=== PATIENT | female | born 1970 | race Caucasian/White ===

== ENCOUNTER 2017-05-09 09:47 | Inpatient (IN) | payer OTHER ==
[2017-05-09 10:00] VITALS: BMI 25.7
--- NOTE | 2017-05-09 10:13 | HP ---
CIWA Score - CIWA Score Nausea/Vomitin-Int. Nausea w/Dry Heave Muscle Tremors: 4-Moderate,w/Arms Extend Anxiety: 4-Mod. Anxious/Guarded Agitation: 1-Slight > Activity Paroxysmal Sweats: 1-Minimal Palms Moist Orientation: 0-Oriented Tacttile Disturbances: 0-None Auditory Disturbances: 1-Very Mild Visual Disturbances: 1-Very Mild Sensitivity Headache: 1-Very Mild CIWA-Ar Total Score: 17 Admission ROS S - HPI Chief Complaint: I want stop drinking and using Allergies/Adverse Reactions: Allergies Allergy/AdvReac Type Severity Reaction Status Date / Time No Known Allergies Allergy Verified 05/09/17 10:04 History of Present Illness: 47 yo woman here for detox from alcohol - poor historian - although urine tox + cocaine, opiates and bzo patient denies any use of any of these substances - [facility] checked - no Rx. Patient reports being hospitalized at [facility] a month ago for anxiety and drinking. History of drug related seizures. Patient was at [facility] ED yesterday for alcohol intoxication and she states they gave her an IV and medicine. Exam Limitations: Clinical Condition - Ebola screening Have you traveled outside of the country in the last 21 days: No Have you had contact with anyone from an Ebola affected area: No Have you been sick,other than usual withdrawal symptoms: No Do you have a fever: No - Review of Systems Constitutional: Malaise, Changes in sleep, Weakness EENT: reports: Blurred Vision Respiratory: reports: Cough Cardiac: reports: No Symptoms Reported GI: reports: Nausea, Abdominal cramping : reports: No Symptoms Reported Musculoskeletal: reports: Back Pain, Muscle Pain Integumentary: reports: No Symptoms Reported Neuro: reports: Headache Endocrine: reports: No Symptoms Reported Hematology: reports: No Symptoms Reported Psychiatric: reports: Judgement Intact, Mood/Affect Appropiate, Orientated x3, Anxious Other Systems: Reviewed and Negative Patient History - Patient Medical History Hx Anemia: No Hx Asthma: Yes (on inhaler) Hx Cancer: No Hx Cardiac Disorders: No Hx Congestive Heart Failure: No Hx Hypertension: Yes (no meds) Hx Pacemaker: No HX Cerebrovascular Accident: No Hx Seizures: Yes (? drug related) Hx Diabetes: No Hx Liver Disease: No Hx Genitourinary Disorders: No Hx Sexually Transmitted Disorders: No Hx Renal Disease (ESRD): No Hx Thyroid Disease: No Hx Human Immunodeficiency Virus (HIV): No Hx Hepatitis C: No Hx Depression: Yes (anxiety, hospitalized [facility] a mn[facility] ago) Hx Suicide Attempt: No Hx Bipolar Disorder: No Hx Schizophrenia: No - Patient Surgical History Past Surgical History: Yes Hx Appendectomy: Yes - PPD History Previous Implant?: Yes Documented Results: Negative w/o proof Implanted On Prior R Admission?: No PPD to be Administered?: Yes - Reproductive History Patient is a Female of Child Bearing Age (11 -55 yrs old): No (male) - Smoking Cessation Smoking history: Current every day smoker Have you smoked in the past 12 months: Yes Aproximately how many cigarettes per day: 2 Initiated information on smoking cessation: Yes 'Breaking Loose' booklet given: 05/09/17 (give on floor) - Substance & Tx. History Hx Alcohol Use: Yes Hx Substance Use: Yes (K-2) Substance Use Type: Alcohol Hx Substance Use Treatment: Yes (detox, rehab) - Substances Abused Alcohol Route: Oral Frequency: Daily Amount used: 2 pints rum Age of first use: 45 Date of Last Use: 05/08/17 K-2 Route: Smoking Frequency: 3-6 times per week Amount used: 1 bag Age of first use: 45 Date of Last Use: 05/07/17 Family Disease History - Family Disease History Family Disease History: Other: Father (living, no contact), Mother (no contact) , Brother (seven - no contact), Sister (two - no contact), Son (one son committed suicide), Daughter (two daughters - no contact) Admission Physical Exam S - Vital Signs Vital Signs: Vital Signs - 24 hr 05/09/17 09:57 Temperature 97.6 F Pulse Rate 91 H Respiratory 20 Rate Blood Pressure 158/100 - Physical General Appearance: Yes: Nourished, Appropriately Dressed, Moderate Distress, Anxious HEENTM: Yes: EOMI, Hearing grossly Normal, Normocephalic, Normal Voice, Pharynx Normal Respiratory: Yes: Lungs Clear, Normal Breath Sounds, No Respiratory Distress Neck: Yes: No masses,lesions,Nodules Breast: Yes: Breast Exam Deferred Cardiology: Yes: Regular Rhythm, Regular Rate Abdominal: Yes: Soft, Surgical Scar, Other (states she had internal bleeding and they did ? exploratory surgery and she's had stomach problems ever since) Genitourinary: Yes: Frequency Back: Yes: Normal Inspection Musculoskeletal: Yes: full range of Motion, Gait Steady, Muscle Pain Extremities: Yes: Normal Inspection, Normal Range of Motion, Non-Tender, Tremors Neurological: Yes: Fully Oriented, Alert, Normal Mood/Affect, Normal Response Integumentary: Yes: Normal Color, Warm Lymphatic: Yes: Within Normal Limits - Diagnostic (1) EtOH dependence Current Visit: Yes Status: Chronic Qualifiers: Substance use status: in withdrawal (2) Asthma Current Visit: Yes Status: Chronic Qualifiers: Asthma severity: moderate Asthma complication type: uncomplicated (3) HTN (hypertension) Current Visit: Yes Status: Chronic Qualifiers: Hypertension type: essential hypertension Qualified Code(s): I10 - Essential (primary) hypertension; I10 - Essential (primary) hypertension; I10 - Essential (primary) hypertension (4) PCP dependence Current Visit: Yes Status: Chronic (5) Seizure Current Visit: Yes Status: Chronic Cleared for Admission [facility] - Detox or Rehab [facility] Level of Care: Medically Managed Detox Regimen/Protocol: Librium [facility] Breath Alcohol Content Breath Alcohol Content: 0 Urine Pregancy Test - Result Urine Test Results: Negative- NO Line Present Urine Drug Screen - Results Drug Screen Negative: No Urine Drug Screen Results: HENRI-Cocaine, OPI-Opiates, BZO-Benzodiazepines
[2017-05-09] MEDS ORDERED: MAG HYDROX/AL HYDROX/SIMETH 30 ML UNIT-DOSE CUP PO PRN (10:23)
[2017-05-09] MEDS ORDERED: hydrOXYzine PAMOATE 50 MG CAPSULE (FP) PO PRN (10:23)
[2017-05-09] MEDS ORDERED: MAGNESIUM CITRATE 300 ML BOTTLE PO PRN (10:23)
[2017-05-09] MEDS ORDERED: LOPERAMIDE HCL 2 MG CAPSULE PO PRN (10:23)
[2017-05-09] MEDS ORDERED: chlordiazePOXIDE HCL 25 MG CAPSULE PO PRN (10:23)
[2017-05-09] MEDS ORDERED: ACETAMINOPHEN 325 MG TABLET (FP) PO PRN (10:23)
[2017-05-09] MEDS ORDERED: NICOTINE POLACRILEX 2 MG GUM BUC PRN (10:23)
[2017-05-09] MEDS ORDERED: MENTHOL/PHENOL 1 EACH UD MM PRN (10:23)
[2017-05-09] MEDS ORDERED: guaiFENesin/D-METHORPHAN HB 10 ML UNIT-DOSE CUPS PO PRN (10:23)
[2017-05-09] MEDS ORDERED: IBUPROFEN 400 MG TABLET (FP) PO PRN (10:23)
[2017-05-09] MEDS ORDERED: MAGNESIUM HYDROX 2400MG/30ML ORAL SUSPENSION 30 ML CUP PO PRN (10:23)
[2017-05-09] MEDS ORDERED: P-EPHED 60MG/TRIPROLIDI 2.5MG TABLET PO PRN (10:23)
[2017-05-09] MEDS ORDERED: ALBUTEROL SO4 18 GM HFA INHALER IH PRN (10:24)
[2017-05-09] MEDS ORDERED: ONDANSETRON *ODT* 4 MG TABLET SL PRN (10:24)
[2017-05-09] MEDS ORDERED: chlordiazePOXIDE HCL 25 MG CAPSULE PO ONE (12:30)
[2017-05-09] MEDS: chlordiazePOXIDE HCL 25 MG CAPSULE PO SCH ×2 (17:44→22:07)
[2017-05-09 18:13] LABS: URINE APPEARANCE TURBID; URINE BILIRUBIN NEGATIVE (NEGATIVE); URINE BLOOD NEGATIVE (NEGATIVE); URINE COLOR YELLOW; URINE GLUCOSE (UA) NEGATIVE (NEGATIVE); URINE KETONE 1+ (NEGATIVE); URINE NITRITE NEGATIVE (NEGATIVE); URINE PROTEIN NEGATIVE (NEGATIVE); URINE UROBILINOGEN NEGATIVE mg/dL (0.2-1.0)
[2017-05-09] MEDS: amLODIPine BESYLATE 10 MG TABLET (FP) PO SCH (18:52)
--- NOTE | 2017-05-09 19:41 | EKG ---
Test Reason : Blood Pressure : / mmHG Vent. Rate : 083 BPM Atrial Rate : 083 BPM P-R Int : 134 ms QRS Dur : 080 ms QT Int : 370 ms P-R-T Axes : 078 059 067 degrees QTc Int : 434 ms NORMAL SINUS RHYTHM T WAVE ABNORMALITY IN aVL NO PREVIOUS ECGS AVAILABLE CLINICAL CORRELATION IS RECOMMENDED Confirmed by TRACY HOOPER MD ([id number]) on 05/09/2017 7:40:49 PM Referred By: Confirmed By:TRACY HOOPER MD
[2017-05-09] MEDS: diphenhydrAMINE HCL 50 MG CAPSULE PO PRN (22:07)
[2017-05-09] MEDS: THIAMINE HCL 100 MG TABLET (FP) PO SCH (22:07)
[2017-05-09 22:44] LABS: URINE LEUK ESTERASE Negative (NEGATIVE)
[2017-05-10] MEDS: chlordiazePOXIDE HCL 25 MG CAPSULE PO SCH ×4 (05:29→22:20)
[2017-05-10 10:26] LABS: MCH 31.1 pg (25.7-33.7); MCHC 32.7 g/dl (32.0-36.0); MEAN CELL VOLUME 95.2 fl (80-96); MEAN PLT VOLUME 8.3 fl (7.5-11.1); PLATELET COUNT 325 K/MM3 (134-434); RDW 14.9 % (11.6-15.6); WHITE BLOOD COUNT 5.7 K/mm3 (4.0-10.0)
[2017-05-10 10:40] LABS: ALBUMIN 2.8 g/dl (3.4-5.0); ALK PHOS 91 U/L (45-117); ANION GAP 9 (8-16); BILIRUBIN,TOTAL 0.9 mg/dL (0.2-1.0); CALCIUM 9.3 mg/dL (8.5-10.1); CO2 28 mmol/L (21-32); CREATININE 0.6 mg/dL (0.55-1.02); GLUCOSE,RANDOM 87 mg/dL (74-106); SGOT/AST 75 U/L (15-37); SGPT/ALT 154 U/L (12-78); TOT PROT 6.4 g/dl (6.4-8.2)
[2017-05-10] MEDS: PRENATAL VITAMINS W/ FOLIC ACID TABLET (FP) PO SCH (10:59)
[2017-05-10] MEDS: amLODIPine BESYLATE 10 MG TABLET (FP) PO SCH (10:59)
--- NOTE | 2017-05-10 12:14 | PN ---
S CIWA - CIWA Score Nausea/Vomitin Muscle Tremors: 3 Anxiety: 3 Agitation: 3 Paroxysmal Sweats: 1-Minimal Palms Moist Orientation: 0-Oriented Tacttile Disturbances: 1-Very Mild Itch/Numbness Auditory Disturbances: 1-Very Mild Visual Disturbances: 0-None Headache: 2-Mild CIWA-Ar Total Score: 17 BHS Progress Note (SOAP) Subjective: ALERT,IRRITABLE,ANXIOUS,INTERRUPTED SLEEP,TREMOR Objective: 05/10/17 12:11 Vital Signs Temperature 97.2 F L 05/10/17 09:55 Pulse Rate 102 H 05/10/17 09:55 Respiratory Rate 18 05/10/17 09:55 Blood Pressure 134/84 05/10/17 09:55 O2 Sat by Pulse Oximetry (%) EKG NSR,NORMAL ECG Laboratory Last Values WBC 5.7 K/mm3 (4.0-10.0) 05/10/17 07:40 RBC 4.01 M/mm3 (3.60-5.2) 05/10/17 07:40 Hgb 12.5 GM/dL (10.7-15.3) 05/10/17 07:40 Hct 38.2 % (32.4-45.2) 05/10/17 07:40 MCV 95.2 fl (80-96) 05/10/17 07:40 MCH 31.1 pg (25.7-33.7) 05/10/17 07:40 MCHC 32.7 g/dl (32.0-36.0) 05/10/17 07:40 RDW 14.9 % (11.6-15.6) 05/10/17 07:40 Plt Count 325 K/MM3 (134-434) 05/10/17 07:40 MPV 8.3 fl (7.5-11.1) 05/10/17 07:40 Sodium 140 mmol/L (136-145) 05/10/17 07:40 Potassium 3.9 mmol/L (3.5-5.1) 05/10/17 07:40 Chloride 103 mmol/L (98-107) 05/10/17 07:40 Carbon Dioxide 28 mmol/L (21-32) 05/10/17 07:40 Anion Gap 9 (8-16) 05/10/17 07:40 BUN 6 mg/dL (7-18) L 05/10/17 07:40 Creatinine 0.6 mg/dL (0.55-1.02) 05/10/17 07:40 Creat Clearance w eGFR > 60 (>60) 05/10/17 07:40 Random Glucose 87 mg/dL (74-106) 05/10/17 07:40 Calcium 9.3 mg/dL (8.5-10.1) 05/10/17 07:40 Total Bilirubin 0.9 mg/dL (0.2-1.0) 05/10/17 07:40 AST 75 U/L (15-37) H 05/10/17 07:40 ALT 154 U/L (12-78) H 05/10/17 07:40 Alkaline Phosphatase 91 U/L (45-117) 05/10/17 07:40 Total Protein 6.4 g/dl (6.4-8.2) 05/10/17 07:40 Albumin 2.8 g/dl (3.4-5.0) L 05/10/17 07:40 Urine Color Yellow 05/09/17 14:40 Urine Appearance Turbid 05/09/17 14:40 Urine pH 5.0 (5.0-8.0) 05/09/17 14:40 Ur Specific [place] 1.025 (1.005-1.025) 05/09/17 14:40 Urine Protein Negative (NEGATIVE) 05/09/17 14:40 Urine Glucose (UA) Negative (NEGATIVE) 05/09/17 14:40 Urine Ketones 1+ (NEGATIVE) H 05/09/17 14:40 Urine Blood Negative (NEGATIVE) 05/09/17 14:40 Urine Nitrite Negative (NEGATIVE) 05/09/17 14:40 Urine Bilirubin Negative (NEGATIVE) 05/09/17 14:40 Urine Urobilinogen Negative mg/dL (0.2-1.0) 05/09/17 14:40 Ur Leukocyte Esterase Negative (NEGATIVE) 05/09/17 14:40 RPR Titer Nonreactive (NONREACTIVE) 05/10/17 07:40 05/10/17 12:13 LABS PENDING Assessment: 05/10/17 12:13 WITHDRAWAL SYMPTOM Plan: CONTINUE DETOX,D/C TYLENOL FOR ELEVATION OF ALT,AST
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
[2017-05-10] MEDS ORDERED: ALBUTEROL SO4 2.5/IPRATROPIUM 0.5 INH SOL 3 ML VIAL.NEB. NEB PRN (17:56)
[2017-05-10] MEDS: ALBUTEROL SO4 2.5/IPRATROPIUM 0.5 INH SOL 3 ML VIAL.NEB. NEB SCH ×2 (18:15→23:08)
[2017-05-10] MEDS: THIAMINE HCL 100 MG TABLET (FP) PO SCH (22:20)
[2017-05-10] MEDS: diphenhydrAMINE HCL 50 MG CAPSULE PO PRN (22:21)
[2017-05-11] MEDS: chlordiazePOXIDE HCL 25 MG CAPSULE PO SCH ×2 (05:42→10:21)
[2017-05-11] MEDS: amLODIPine BESYLATE 10 MG TABLET (FP) PO SCH (10:21)
[2017-05-11] MEDS: PRENATAL VITAMINS W/ FOLIC ACID TABLET (FP) PO SCH (10:21)
--- NOTE | 2017-05-11 11:21 | PN ---
S CIWA - CIWA Score Nausea/Vomitin Muscle Tremors: 3 Anxiety: 3 Agitation: 3 Paroxysmal Sweats: 1-Minimal Palms Moist Orientation: 0-Oriented Tacttile Disturbances: 1-Very Mild Itch/Numbness Auditory Disturbances: 1-Very Mild Visual Disturbances: 0-None Headache: 2-Mild CIWA-Ar Total Score: 17 BHS Progress Note (SOAP) Subjective: ALERT,IRRITABLE,ANXIOUS,INTERRUPTED SLEEP,TREMOR Objective: 05/11/17 11:19 Vital Signs Temperature 96.2 F L 05/11/17 09:44 Pulse Rate 96 H 05/11/17 09:44 Respiratory Rate 18 05/11/17 09:44 Blood Pressure 155/93 05/11/17 09:44 O2 Sat by Pulse Oximetry (%) 05/11/17 11:22 Assessment: 05/11/17 11:22 WITHDRAWAL SYMPTOM Plan: CONTINUE DETOX
[2017-05-11] MEDS: chlordiazePOXIDE 5 MG CAPSULE PO SCH ×2 (17:23→22:28)
[2017-05-11] MEDS: ALBUTEROL SO4 2.5/IPRATROPIUM 0.5 INH SOL 3 ML VIAL.NEB. NEB SCH (17:24)
[2017-05-11] MEDS: diphenhydrAMINE HCL 50 MG CAPSULE PO PRN (22:29)
[2017-05-11] MEDS: THIAMINE HCL 100 MG TABLET (FP) PO SCH (22:29)
[2017-05-12] MEDS: ALBUTEROL SO4 2.5/IPRATROPIUM 0.5 INH SOL 3 ML VIAL.NEB. NEB SCH ×4 (00:30→13:00)
[2017-05-12] MEDS: chlordiazePOXIDE 5 MG CAPSULE PO SCH ×2 (05:45→10:21)
[2017-05-12] MEDS: PRENATAL VITAMINS W/ FOLIC ACID TABLET (FP) PO SCH (10:21)
[2017-05-12] MEDS: amLODIPine BESYLATE 10 MG TABLET (FP) PO SCH (10:21)
--- NOTE | 2017-05-12 10:33 | PN ---
S Progress Note (SOAP) Subjective: ALERT,IRRITABLE,INTERRUPTED SLEEP Objective: 05/12/17 10:30 Vital Signs Temperature 96.8 F L 05/12/17 10:10 Pulse Rate 107 H 05/12/17 10:10 Respiratory Rate 18 05/12/17 10:10 Blood Pressure 112/67 05/12/17 10:10 O2 Sat by Pulse Oximetry (%) Laboratory Last Values WBC 5.7 K/mm3 (4.0-10.0) 05/10/17 07:40 RBC 4.01 M/mm3 (3.60-5.2) 05/10/17 07:40 Hgb 12.5 GM/dL (10.7-15.3) 05/10/17 07:40 Hct 38.2 % (32.4-45.2) 05/10/17 07:40 MCV 95.2 fl (80-96) 05/10/17 07:40 MCH 31.1 pg (25.7-33.7) 05/10/17 07:40 MCHC 32.7 g/dl (32.0-36.0) 05/10/17 07:40 RDW 14.9 % (11.6-15.6) 05/10/17 07:40 Plt Count 325 K/MM3 (134-434) 05/10/17 07:40 MPV 8.3 fl (7.5-11.1) 05/10/17 07:40 Sodium 140 mmol/L (136-145) 05/10/17 07:40 Potassium 3.9 mmol/L (3.5-5.1) 05/10/17 07:40 Chloride 103 mmol/L (98-107) 05/10/17 07:40 Carbon Dioxide 28 mmol/L (21-32) 05/10/17 07:40 Anion Gap 9 (8-16) 05/10/17 07:40 BUN 6 mg/dL (7-18) L 05/10/17 07:40 Creatinine 0.6 mg/dL (0.55-1.02) 05/10/17 07:40 Creat Clearance w eGFR > 60 (>60) 05/10/17 07:40 Random Glucose 87 mg/dL (74-106) 05/10/17 07:40 Calcium 9.3 mg/dL (8.5-10.1) 05/10/17 07:40 Total Bilirubin 0.9 mg/dL (0.2-1.0) 05/10/17 07:40 AST 75 U/L (15-37) H 05/10/17 07:40 ALT 154 U/L (12-78) H 05/10/17 07:40 Alkaline Phosphatase 91 U/L (45-117) 05/10/17 07:40 Total Protein 6.4 g/dl (6.4-8.2) 05/10/17 07:40 Albumin 2.8 g/dl (3.4-5.0) L 05/10/17 07:40 Urine Color Yellow 05/09/17 14:40 Urine Appearance Turbid 05/09/17 14:40 Urine pH 5.0 (5.0-8.0) 05/09/17 14:40 Ur Specific [place] 1.025 (1.005-1.025) 05/09/17 14:40 Urine Protein Negative (NEGATIVE) 05/09/17 14:40 Urine Glucose (UA) Negative (NEGATIVE) 05/09/17 14:40 Urine Ketones 1+ (NEGATIVE) H 05/09/17 14:40 Urine Blood Negative (NEGATIVE) 05/09/17 14:40 Urine Nitrite Negative (NEGATIVE) 05/09/17 14:40 Urine Bilirubin Negative (NEGATIVE) 05/09/17 14:40 Urine Urobilinogen Negative mg/dL (0.2-1.0) 05/09/17 14:40 Ur Leukocyte Esterase Negative (NEGATIVE) 05/09/17 14:40 RPR Titer Nonreactive (NONREACTIVE) 05/10/17 07:40 Hepatitis C Antibody >11.0 s/co ratio (0.0-0.9) H 05/10/17 07:40 Assessment: 05/12/17 10:30 WITHDRAWAL SYMPTOM Plan: CONTINUE DETOX,EXPLAINED TO PATIENT THAT THE HEPATITIS C IS POSITIVE,SHE WILL SEE HER PMD DR KENDY GALLAGHER AT [address] [place] [address] FOR FOLLOW UP UPON DISCHARGE
[2017-05-12] MEDS: chlordiazePOXIDE HCL 10 MG CAPSULE PO SCH ×2 (17:49→22:33)
[2017-05-12] MEDS: diphenhydrAMINE HCL 50 MG CAPSULE PO PRN (22:34)
[2017-05-12] MEDS: THIAMINE HCL 100 MG TABLET (FP) PO SCH (22:34)
[2017-05-13] MEDS: ALBUTEROL SO4 2.5/IPRATROPIUM 0.5 INH SOL 3 ML VIAL.NEB. NEB SCH ×2 (00:30→06:05)
[2017-05-13] MEDS: chlordiazePOXIDE HCL 10 MG CAPSULE PO SCH (06:05)
--- NOTE | 2017-05-13 09:03 | DS ---
[facility] Detox Discharge Summary Admission Date: 05/09/17 Discharge Date: 05/13/17 - History Present History: Sedative Dependence, Pcp Dependence Additional Comments: follow up with after care program as arrangement Pertinent Past History: asthma hypertension seizure nicotine dependence dependence - Physical Exam Results Vital Signs: Vital Signs Temperature 97.1 F L 05/13/17 06:20 Pulse Rate 81 05/13/17 06:20 Respiratory Rate 18 05/13/17 06:20 Blood Pressure 132/72 05/13/17 06:20 O2 Sat by Pulse Oximetry (%) Pertinent Admission Physical Exam Findings: withdrawal symptom - Treatment Hospital Course: Detox Protocol Followed, Detoxed Safely, Responded well, Discharged Condition Good Patient has Accepted a Rehab Referral to: declined - Medication Discharge Medications: Ambulatory Orders Albuterol Sulfate Inhaler - [Ventolin Hfa Inhaler -] 2 inh PO Q4H PRN 05/09/17 - Diagnosis (1) Alcohol dependence with uncomplicated withdrawal Current Visit: Yes Status: Acute (2) Nicotine dependence Current Visit: Yes Status: Acute (3) Asthma Current Visit: Yes Status: Chronic Qualifiers: Asthma severity: moderate Asthma complication type: uncomplicated (4) HTN (hypertension) Current Visit: Yes Status: Chronic Qualifiers: Hypertension type: essential hypertension Qualified Code(s): I10 - Essential (primary) hypertension; I10 - Essential (primary) hypertension; I10 - Essential (primary) hypertension (5) PCP dependence Current Visit: Yes Status: Chronic (6) Seizure Current Visit: Yes Status: Chronic (7) Hepatitis C Current Visit: Yes Status: Acute (8) Schizophrenia Current Visit: Yes Status: Ruled-out - AMA Did Patient Leave Against Medical Advice: No
[2017-05-13 10:51] VITALS: BP 130/80; PULSE 70; TEMP 98.2
[2017-05-14 08:11] LABS: HCV LOG 10 5.138 (.)
== END 2017-05-13 09:38 | disposition home or self-care (01) | DRG 775 ==
LOC: YASAS 09:47 → Y6N 12:12
PROVIDERS: ADMIT Internal Medicine; ATTEND Internal Medicine
PROC: HZ2ZZZZ Detoxification Services for Substance Abuse Treatment (ICD-10-PCS; principal; 2017-05-09)
DX: F10.230 Alcohol dependence with withdrawal, uncomplicated (principal); F16.20 Hallucinogen dependence, uncomplicated; F17.210 Nicotine dependence, cigarettes, uncomplicated; F20.9 Schizophrenia, unspecified; F99 Mental disorder, not otherwise specified; J45.40 Moderate persistent asthma, uncomplicated; I10 Essential (primary) hypertension; B18.2 Chronic viral hepatitis C; Z86.69 Personal history of other diseases of the nervous system and sense organs
CPT/HCPCS: 36415; 80053; 81003; 85027; 86593; 86803; 87522; 93005; 93010; 94640

== ENCOUNTER 2023-02-02 08:58 | Inpatient (IN) | payer OTHER ==
[2023-02-02 09:37] VITALS: BMI 28.8
[2023-02-02] MEDS ORDERED: IBUPROFEN 400 MG TABLET (FP) PO PRN (11:07)
[2023-02-02] MEDS ORDERED: BISMUTH SUBSALICYLATE 524 MG/30 ML PO PRN (11:07)
[2023-02-02] MEDS ORDERED: IBUPROFEN 600 MG TABLET (FP) PO PRN (11:07)
[2023-02-02] MEDS ORDERED: BENZOCAINE/MENTHOL (CHLORASEPTIC ) LOZENGE MM PRN (11:07)
[2023-02-02] MEDS ORDERED: ONDANSETRON *ODT* 4 MG TABLET SL PRN (11:07)
[2023-02-02] MEDS ORDERED: MAGNESIUM HYDROX 2400MG/30ML ORAL SUSPENSION 30 ML CUP PO PRN (11:07)
[2023-02-02] MEDS ORDERED: ACETAMINOPHEN 325 MG TABLET (FP) PO PRN (11:07)
[2023-02-02] MEDS ORDERED: NALOXONE HCL (KLOXXADO) 8 MG SPRAY NS PRN (11:07)
[2023-02-02] MEDS ORDERED: BENZONATATE 200 MG CAPSULE PO PRN (11:07)
[2023-02-02] MEDS ORDERED: MAG HYDROX/AL HYDROX/SIMETH 30 ML UNIT-DOSE CUP PO PRN (11:07)
[2023-02-02] MEDS ORDERED: POLYETHYLENE GLYCOL (HEALTHYLAX) 3350 17 GM PACKET PO PRN (11:07)
[2023-02-02] MEDS ORDERED: LOPERAMIDE HCL 2 MG CAPSULE PO PRN (11:07)
[2023-02-02] MEDS ORDERED: NALOXONE HCL 0.4 MG/ML VIAL IM PRN (11:07)
[2023-02-02] MEDS ORDERED: DICYCLOMINE HCL 10 MG CAPSULE PO PRN (11:07)
[2023-02-02] MEDS ORDERED: guaiFENesin 600 MG TABLET.ER (FP) PO PRN (11:07)
[2023-02-02] MEDS ORDERED: ALBUTEROL SO4 HFA INHALER IH PRN (11:22)
[2023-02-02 15:04] LABS: HEMATOCRIT 35.7 % (32.4-45.2); HEMOGLOBIN 11.5 GM/dL (10.7-15.3); MCH 29.5 pg (25.7-33.7); MCHC 32.2 g/dl (32.0-36.0); MEAN CELL VOLUME 91.6 fl (80-96); MEAN PLT VOLUME 8.9 fl (7.5-11.1); PLATELET COUNT 203 10^3/uL (134-434); RBC 3.89 M/mm3 (3.60-5.2); RDW 16.4 % (11.6-15.6); WHITE BLOOD COUNT 5.4 K/mm3 (4.0-10.0)
[2023-02-02 15:08] LABS: POTASSIUM 4.2 mmol/L (3.5-5.1)
[2023-02-02 15:17] LABS: ALBUMIN 3.5 g/dl (3.4-5.0); BLOOD UREA NITROGEN 16.5 mg/dL (7-18); CALCIUM 11.5 mg/dL (8.5-10.1)
[2023-02-02 15:20] LABS: TOT PROT 7.9 g/dl (6.4-8.2)
[2023-02-02 15:21] LABS: CREATININE 1.1 mg/dL (0.55-1.3)
[2023-02-02] MEDS ORDERED: MELATONIN 5 MG TABLETS PO SCH (22:00)
[2023-02-02] MEDS ORDERED: THIAMINE HCL 100 MG TABLET (FP) PO SCH (22:00)
[2023-02-02] MEDS: METHOCARBAMOL 500 MG TABLET PO PRN (22:28)
[2023-02-03 09:52] VITALS: BP 113/74; PULSE 93; RESP 19; TEMP 96.8
[2023-02-03] MEDS ORDERED: PRENATAL VITAMINS W/ FOLIC ACID TABLET (FP) PO SCH (10:00)
[2023-02-03] MEDS ORDERED: amLODIPine BESYLATE 10 MG TABLET (FP) PO SCH (10:00)
[2023-02-03] MEDS ORDERED: ALBUTEROL SO4 HFA INHALER IH PRN (10:00)
[2023-02-03] MEDS: METHOCARBAMOL 500 MG TABLET PO PRN (10:16)
== END 2023-02-03 11:25 | disposition home or self-care (01) | DRG 775 ==
LOC: YASAS 08:58 → Y6N 11:34
PROVIDERS: ADMIT Allergy & Immunology; ATTEND Surgery
PROC: HZ2ZZZZ Detoxification Services for Substance Abuse Treatment (ICD-10-PCS; principal; 2023-02-02)
DX: F10.20 Alcohol dependence, uncomplicated (principal); F13.20 Sedative, hypnotic or anxiolytic dependence, uncomplicated; I10 Essential (primary) hypertension; J45.20 Mild intermittent asthma, uncomplicated; B18.2 Chronic viral hepatitis C; Z99.89 Dependence on other enabling machines and devices
CPT/HCPCS: 36415; 80053; 81025; 85027; 86780; 87635; 93005; 93010

== ENCOUNTER 2023-02-12 21:46 | Inpatient (IN) | payer OTHER ==
[2023-02-12 17:39] VITALS: BMI 28.8
[2023-02-12] MEDS ORDERED: ALBUTEROL SO4 HFA INHALER IH PRN (22:47)
[2023-02-12] MEDS ORDERED: guaiFENesin 600 MG TABLET.ER (FP) PO PRN (22:48)
[2023-02-12] MEDS ORDERED: DICYCLOMINE HCL 10 MG CAPSULE PO PRN (22:48)
[2023-02-12] MEDS ORDERED: MAGNESIUM HYDROX 2400MG/30ML ORAL SUSPENSION 30 ML CUP PO PRN (22:48)
[2023-02-12] MEDS ORDERED: MAG HYDROX/AL HYDROX/SIMETH 30 ML UNIT-DOSE CUP PO PRN (22:48)
[2023-02-12] MEDS ORDERED: ONDANSETRON *ODT* 4 MG TABLET SL PRN (22:48)
[2023-02-12] MEDS ORDERED: NALOXONE HCL (KLOXXADO) 8 MG SPRAY NS PRN (22:48)
[2023-02-12] MEDS ORDERED: LOPERAMIDE HCL 2 MG CAPSULE PO PRN (22:48)
[2023-02-12] MEDS ORDERED: IBUPROFEN 400 MG TABLET (FP) PO PRN (22:48)
[2023-02-12] MEDS ORDERED: ACETAMINOPHEN 325 MG TABLET (FP) PO PRN (22:48)
[2023-02-12] MEDS ORDERED: POLYETHYLENE GLYCOL (HEALTHYLAX) 3350 17 GM PACKET PO PRN (22:48)
[2023-02-12] MEDS ORDERED: hydrOXYzine PAMOATE 25 MG CAPSULE (FP) PO PRN (22:48)
[2023-02-12] MEDS ORDERED: BISMUTH SUBSALICYLATE 524 MG/30 ML PO PRN (22:48)
[2023-02-12] MEDS ORDERED: BENZONATATE 200 MG CAPSULE PO PRN (22:48)
[2023-02-12] MEDS ORDERED: BENZOCAINE/MENTHOL (CHLORASEPTIC ) LOZENGE MM PRN (22:48)
[2023-02-12] MEDS ORDERED: NALOXONE HCL 0.4 MG/ML VIAL IM PRN (22:48)
[2023-02-13] MEDS ORDERED: IBUPROFEN 600 MG TABLET (FP) PO ONE (00:18)
[2023-02-13] MEDS: IBUPROFEN 600 MG TABLET (FP) PO PRN ×2 (00:20→10:36)
[2023-02-13 09:22] VITALS: RESP 16; TEMP 97.5
[2023-02-13] MEDS ORDERED: PRENATAL VITAMINS W/ FOLIC ACID TABLET (FP) PO SCH (10:00)
[2023-02-13] MEDS ORDERED: amLODIPine BESYLATE 10 MG TABLET (FP) PO SCH (11:00)
[2023-02-13 11:16] LABS: HEMATOCRIT 33.2 % (32.4-45.2); HEMOGLOBIN 10.5 GM/dL (10.7-15.3); MCH 29.7 pg (25.7-33.7); MCHC 31.8 g/dl (32.0-36.0); MEAN CELL VOLUME 93.5 fl (80-96); MEAN PLT VOLUME 9.1 fl (7.5-11.1); PLATELET COUNT 171 10^3/uL (134-434); RBC 3.55 M/mm3 (3.60-5.2); RDW 15.5 % (11.6-15.6); WHITE BLOOD COUNT 3.5 K/mm3 (4.0-10.0)
[2023-02-13 11:21] VITALS: BP 130/84; PULSE 92
[2023-02-13 11:50] LABS: POTASSIUM 4.1 mmol/L (3.5-5.1)
[2023-02-13 11:54] LABS: CALCIUM 10.3 mg/dL (8.5-10.1)
[2023-02-13 11:55] LABS: ALBUMIN 3.2 g/dl (3.4-5.0); BLOOD UREA NITROGEN 21.7 mg/dL (7-18)
[2023-02-13 11:58] LABS: CREATININE 0.8 mg/dL (0.55-1.3)
[2023-02-13 11:59] LABS: TOT PROT 6.9 g/dl (6.4-8.2)
[2023-02-13] MEDS ORDERED: THIAMINE HCL 100 MG TABLET (FP) PO SCH (22:00)
[2023-02-13] MEDS ORDERED: MELATONIN 5 MG TABLETS PO SCH (22:00)
== END 2023-02-13 12:43 | disposition home or self-care (01) | DRG 775 ==
LOC: YASAS 21:46 → Y6N 23:24
PROVIDERS: ADMIT Allergy & Immunology; ATTEND Surgery
PROC: HZ2ZZZZ Detoxification Services for Substance Abuse Treatment (ICD-10-PCS; principal; 2023-02-12)
DX: F10.20 Alcohol dependence, uncomplicated (principal); F17.210 Nicotine dependence, cigarettes, uncomplicated; F19.24 Other psychoactive substance dependence with psychoactive substance-induced mood disorder; F29 Unspecified psychosis not due to a substance or known physiological condition; F10.282 Alcohol dependence with alcohol-induced sleep disorder; J45.20 Mild intermittent asthma, uncomplicated; Z62.810 Personal history of physical and sexual abuse in childhood; R26.89 Other abnormalities of gait and mobility; W19.XXXA Unspecified fall, initial encounter; Y93.89 Activity, other specified; Y92.238 Other place in hospital as the place of occurrence of the external cause
CPT/HCPCS: 36415; 71111-TC-FY; 73562-TC-RT-FY; 73610-TC-RT-FY; 80053; 81025; 85027; 86780; 87635; 87811

== ENCOUNTER 2023-05-06 16:28 | Inpatient (IN) | payer OTHER ==
[2023-05-06 18:05] VITALS: BMI 29.0
[2023-05-06] MEDS ORDERED: diazePAM 5 MG TABLET PO ONE (20:15)
[2023-05-06] MEDS ORDERED: BISMUTH SUBSALICYLATE 524 MG/30 ML PO PRN (20:17)
[2023-05-06] MEDS ORDERED: MAG HYDROX/AL HYDROX/SIMETH 30 ML UNIT-DOSE CUP PO PRN (20:17)
[2023-05-06] MEDS ORDERED: BENZOCAINE/MENTHOL (CHLORASEPTIC ) LOZENGE MM PRN (20:17)
[2023-05-06] MEDS ORDERED: P-EPHED 60MG/TRIPROLIDI 2.5MG TABLET PO PRN (20:17)
[2023-05-06] MEDS ORDERED: hydrOXYzine PAMOATE 25 MG CAPSULE (FP) PO PRN (20:17)
[2023-05-06] MEDS ORDERED: BENZONATATE 200 MG CAPSULE PO PRN (20:17)
[2023-05-06] MEDS ORDERED: POLYETHYLENE GLYCOL (HEALTHYLAX) 3350 17 GM PACKET PO PRN (20:17)
[2023-05-06] MEDS ORDERED: LOPERAMIDE HCL 2 MG CAPSULE PO PRN (20:17)
[2023-05-06] MEDS ORDERED: guaiFENesin 600 MG TABLET.ER (FP) PO PRN (20:17)
[2023-05-06] MEDS ORDERED: ONDANSETRON *ODT* 4 MG TABLET SL PRN (20:17)
[2023-05-06] MEDS ORDERED: IBUPROFEN 400 MG TABLET (FP) PO PRN (20:17)
[2023-05-06] MEDS ORDERED: DICYCLOMINE HCL 10 MG CAPSULE PO PRN (20:17)
[2023-05-06] MEDS ORDERED: MAGNESIUM HYDROX 2400MG/30ML ORAL SUSPENSION 30 ML CUP PO PRN (20:17)
[2023-05-06] MEDS ORDERED: diazePAM 5 MG TABLET ONE (21:34)
[2023-05-06] MEDS: MELATONIN 5 MG TABLETS PO SCH (22:51)
[2023-05-06] MEDS: THIAMINE HCL 100 MG TABLET (FP) PO SCH (22:51)
[2023-05-06] MEDS: IBUPROFEN 600 MG TABLET (FP) PO PRN (22:53)
[2023-05-06] MEDS: diazePAM 5 MG TABLET PO SCH (22:54)
[2023-05-07] MEDS: diazePAM 5 MG TABLET PO SCH ×4 (05:16→22:21)
[2023-05-07] MEDS: PRENATAL VITAMINS W/ FOLIC ACID TABLET (FP) PO SCH (10:14)
[2023-05-07] MEDS: METHOCARBAMOL 500 MG TABLET PO PRN (21:45)
[2023-05-07] MEDS: IBUPROFEN 600 MG TABLET (FP) PO PRN (21:45)
[2023-05-07] MEDS: THIAMINE HCL 100 MG TABLET (FP) PO SCH (22:21)
[2023-05-07] MEDS: ALBUTEROL SO4 HFA INHALER IH PRN (22:21)
[2023-05-07] MEDS: MELATONIN 5 MG TABLETS PO SCH (22:21)
[2023-05-08] MEDS: ALBUTEROL SO4 HFA INHALER IH PRN ×2 (05:54→22:20)
[2023-05-08] MEDS: diazePAM 5 MG TABLET PO SCH ×3 (05:55→22:20)
[2023-05-08] MEDS: PRENATAL VITAMINS W/ FOLIC ACID TABLET (FP) PO SCH (10:15)
[2023-05-08] MEDS: diazePAM 5 MG TABLET PO PRN (10:15)
[2023-05-08] MEDS: amLODIPine BESYLATE 10 MG TABLET (FP) PO SCH (15:30)
[2023-05-08] MEDS: MELATONIN 5 MG TABLETS PO SCH (22:20)
[2023-05-08] MEDS: THIAMINE HCL 100 MG TABLET (FP) PO SCH (22:20)
[2023-05-09] MEDS: diazePAM 5 MG TABLET PO SCH ×2 (06:01→17:20)
[2023-05-09] MEDS: amLODIPine BESYLATE 10 MG TABLET (FP) PO SCH (09:19)
[2023-05-09] MEDS: PRENATAL VITAMINS W/ FOLIC ACID TABLET (FP) PO SCH (09:19)
[2023-05-09] MEDS: diazePAM 5 MG TABLET PO PRN (10:26)
[2023-05-09] MEDS: ALBUTEROL SO4 HFA INHALER IH PRN (17:18)
[2023-05-09] MEDS: MELATONIN 5 MG TABLETS PO SCH (21:57)
[2023-05-09] MEDS: THIAMINE HCL 100 MG TABLET (FP) PO SCH (21:57)
[2023-05-09] MEDS: IBUPROFEN 600 MG TABLET (FP) PO PRN (21:58)
[2023-05-09] MEDS: METHOCARBAMOL 500 MG TABLET PO PRN (21:59)
[2023-05-10] MEDS: ALBUTEROL SO4 HFA INHALER IH PRN ×2 (05:26→09:44)
[2023-05-10] MEDS ORDERED: diazePAM 5 MG TABLET PO ONE (06:00)
[2023-05-10 09:16] VITALS: BP 134/86; PULSE 84; RESP 20; TEMP 97.1
[2023-05-10] MEDS: amLODIPine BESYLATE 10 MG TABLET (FP) PO SCH (09:44)
[2023-05-10] MEDS: PRENATAL VITAMINS W/ FOLIC ACID TABLET (FP) PO SCH (09:44)
== END 2023-05-10 10:10 | disposition home or self-care (01) | DRG 774 ==
LOC: YASAS 16:28 → Y3N 21:18
PROVIDERS: ADMIT Allergy & Immunology; ATTEND Surgery
PROC: HZ2ZZZZ Detoxification Services for Substance Abuse Treatment (ICD-10-PCS; principal; 2023-05-06)
DX: F10.230 Alcohol dependence with withdrawal, uncomplicated (principal); F14.20 Cocaine dependence, uncomplicated; F20.9 Schizophrenia, unspecified; F29 Unspecified psychosis not due to a substance or known physiological condition; I10 Essential (primary) hypertension; K21.9 Gastro-esophageal reflux disease without esophagitis; Z87.891 Personal history of nicotine dependence
CPT/HCPCS: 80305; 81025; 87635

== ENCOUNTER 2023-10-14 13:11 | Emergency (ER) | payer OTHER ==
[2023-10-14 13:23] VITALS: BP 109/77; PULSE 88; RESP 18; TEMP 98.1; BMI 28.8
[2023-10-14] MEDS ORDERED: ONDANSETRON *ODT* 4 MG TABLET ONE (14:26)
[2023-10-14] MEDS: ONDANSETRON *ODT* 4 MG TABLET SL ONE (14:29)
[2023-10-14] MEDS ORDERED: ACETAMINOPHEN INJECTION 100 ML IVPB ONE (15:31)
== END 2023-10-14 18:00 | disposition short-term general hospital (02) ==
LOC: JER 13:11
DX: M25.522 Pain in left elbow (principal); M25.562 Pain in left knee; R11.0 Nausea; W01.198A Fall on same level from slipping, tripping and stumbling with subsequent striking against other object, initial encounter
CPT/HCPCS: 71046-TC-FY; 71101-TC-LT-FY; 73070-TC-LT-FY; 73564-TC-LT-FY; 99285-25; Q0162